=== PATIENT | male | born 1945 | race Caucasian/White ===

== ENCOUNTER 2018-12-24 13:48 | Emergency (ER) | payer OTHER ==
[~2018-12-24] VITALS: Ht 177.8 cm; Wt 90.7 kg
[2018-12-24 14:25] LABS: ABSOLUTE NEUTROPHILS 11.2 thou/uL (1.4-8.2); BASOPHILS 0.3 % (0.0-2.0); EOSINOPHILS 0.2 % (0.0-3.0); HEMATOCRIT 45.2 % (42.0-52.0); LYMPHOCYTES 10.9 % (24.0-44.0); MCH 31.2 pg (26.0-34.0); MCHC 33.1 g/dL (28.0-37.0); MCV 94.4 fL (80.0-100.0); MONOCYTES 6.1 % (1.0-8.0); PLATELET COUNT 260 thou/uL (150-400); POLYS 82.5 % (36.0-66.0); RBC 4.79 mil/uL (4.50-6.00); WBC 13.6 thou/uL (4.0-11.0)
[2018-12-24 14:30] LABS: ANION GAP 11 mmol/L (7-16); BUN 25 mg/dL (7-18); CALCIUM 9.3 mg/dL (8.5-10.1); CHLORIDE 101 mmol/L (98-107); CO2 24 mmol/L (21-32); GLUCOSE 255 mg/dL (74-106); POTASSIUM 4.7 mmol/L (3.5-5.1); SODIUM 136 mmol/L (136-145)
[2018-12-24 14:39] LABS: ALBUMIN 3.6 g/dL (3.4-5.0); SGOT 16 U/L (15-37); SGPT 29 U/L (30-65); TOTAL BILIRUBIN 0.4 mg/dL (<0.1-1.0); TROPONIN-I <0.06 ng/mL (<0.06)
[2018-12-24 15:44] LABS: URINE BILIRUBIN NEGATIVE (Negative); URINE BLOOD NEGATIVE (Negative); URINE CLARITY CLEAR; URINE GLUCOSE-RANDOM* NEGATIVE (Negative); URINE KETONES NEGATIVE (Negative); URINE LEUKOCYTES-REFLEX NEGATIVE (Negative); URINE NITRITE-REFLEX NEGATIVE (Negative); URINE PROTEIN (DIPSTICK) 1+ (Negative); URINE UROBILINOGEN 0.2 E.U./dl (0.2-1.0)
[2018-12-24 15:47] LABS: URINE COLOR YELLOW
[2018-12-24 15:50] LABS: BACTERIA-REFLEX 1-9 Few /HPF (None Seen); CASTS None Seen /LPF (None Seen); CRYSTALS None Seen /LPF (None Seen); SQUAMOUS None Seen /LPF (0-3); URINE RBC None Seen /HPF (0-2); URINE WBC-REFLEX 0-5 Rare /HPF (0-5)
[2018-12-24 17:28] VITALS: BP 152/87
--- NOTE | 2018-12-25 10:26 | EKG ---
[place] [address] [facility] [place] [address] ELECTROCARDIOGRAM REPORT Name: VIC NGO [facility] [id number] ������������������ Admission: 12/24/18 ������������������ Attend Phys: Discharge: 12/24/18 ������������������ Date of : 49 Report #: [id number] ����������������������������������������������������������������� [id number] THIS REPORT FOR: //name// [facility] ED Test Date: 2018-12-24 Test Time: 13:54:06 Pat Name: VIC NGO Department: Room: Gender: Testing Manager: : 1945 Requested By: Janice Russell Order Number: [id number] MD: Adriel Parmar Measurements Intervals [place] Rate: 93 P: 71 IA: 165 QRS: -3 QRSD: 116 T: -25 QT: 371 QTc: 462 Interpretive Statements Sinus arrhythmia Inferior infarct, age indeterminate Compared to ECG 09/12/2005 06:25:21 Intraventricular conduction delay now present Sinus tachycardia no longer present Electronically Signed On 12-25-2018 10:25:53 CDT by Adriel Parmar [email or web address] ��������������������������������������������� <ELECTRONICALLY SIGNED> ���������������������������������������� By: Adriel Parmar MD, [facility] ��������������������������������������������� 12/25/18 1025 1354 1354 Adriel Parmar MD, [facility] /EPI
== END 2018-12-24 17:28 | disposition home or self-care (01) ==
LOC: ER 13:48
PROVIDERS: Student in an Organized Health Care Education/Training Program
DX: R55 Syncope and collapse (principal); M06.9 Rheumatoid arthritis, unspecified; F17.210 Nicotine dependence, cigarettes, uncomplicated; Z88.0 Allergy status to penicillin; Z88.1 Allergy status to other antibiotic agents; Z88.8 Allergy status to other drugs, medicaments and biological substances; Z95.5 Presence of coronary angioplasty implant and graft

== ENCOUNTER 2020-06-07 19:06 | Inpatient (IN) | payer OTHER, MEDICARE ==
[~2020-06-07] VITALS: Ht 177.8 cm; Wt 63.0 kg
[2020-06-07 20:55] LABS: ABSOLUTE NEUTROPHILS 8.6 thou/uL (1.4-8.2); BASOPHILS 1.3 % (0.0-2.0); EOSINOPHILS 0.3 % (0.0-3.0); HEMATOCRIT 41.7 % (42.0-52.0); HEMOGLOBIN 13.9 gm/dL (14.0-18.0); LYMPHOCYTES 17.8 % (24.0-44.0); MCH 31.4 pg (26.0-34.0); MCHC 33.3 g/dL (28.0-37.0); MCV 94.2 fL (80.0-100.0); MONOCYTES 11.9 % (1.0-8.0); PLATELET COUNT 253 thou/uL (150-400); POLYS 68.7 % (36.0-66.0); RBC 4.42 mil/uL (4.50-6.00); RDW 14.6 % (10.5-14.5); WBC 12.6 thou/uL (4.0-11.0)
[2020-06-07 21:05] LABS: ANION GAP 11 mmol/L (7-16); BUN 13 mg/dL (7-18); CALCIUM 9.1 mg/dL (8.5-10.1); CHLORIDE 101 mmol/L (98-107); CO2 27 mmol/L (21-32); CREATININE 1.1 mg/dL (0.7-1.3); GLUCOSE 179 mg/dL (74-106); SODIUM 139 mmol/L (136-145)
[2020-06-07 21:06] LABS: URINE BILIRUBIN NEGATIVE (Negative); URINE BLOOD TRACE (Negative); URINE CLARITY CLEAR; URINE COLOR YELLOW; URINE GLUCOSE-RANDOM* NEGATIVE (Negative); URINE KETONES NEGATIVE (Negative); URINE LEUKOCYTES-REFLEX NEGATIVE (Negative); URINE NITRITE-REFLEX NEGATIVE (Negative); URINE PROTEIN (DIPSTICK) NEGATIVE (Negative); URINE UROBILINOGEN 0.2 E.U./dl (0.2-1.0)
[2020-06-07 21:07] LABS: POTASSIUM 4.2 mmol/L (3.5-5.1)
--- NOTE | 2020-06-07 21:10 | NUR ---
I PERFORMED ORTHOSTATIC BP,PULSE WHICH PATIENT TOLERATED WITHOUT DIZZINESS, STEADY WHILE STANDING. VOIDED FOR UA SPECIMEN. AFTER LYING BACK DOWN, PATIENT BECAME UNRESPONSIVE WITH FIXED STARE, NO CHANGE TO BREATHING. RETURNED TO CONSCIOUSNESS QUICKLY, ALERT, ORIENTED. REVIEWED FELLING MACHINE OPERATOR WHICH SHOWED ASYTOLE DURING EVENT AT 2054.SPOUSE IN ROOM REPORTED SIMILAR BRIEF PERIODS OF FAINTING SINCE HE HAS BEEN IN ER. PRINTED COPIES OF FELLING MACHINE OPERATOR SHOWING TWO EPISODES OF ASYSTOLE AT [address] WOODS AND CHARGE NURSE KATIE NOTIFIED OF ABOVE.
[2020-06-07 21:16] LABS: ALBUMIN 3.1 g/dL (3.4-5.0); MAGNESIUM 1.9 mg/dL (1.8-2.4); SGOT 19 U/L (15-37); SGPT 20 U/L (30-65); TOTAL BILIRUBIN 0.5 mg/dL (0.2-1.0); TOTAL PROTEIN 6.5 g/dL (6.4-8.2); TROPONIN-I <0.06 ng/mL (<0.06)
--- NOTE | 2020-06-07 21:30 | NUR ---
BIOLOGY LABORATORY ASSISTANT HAS BEEN CALLED. PREPARED FOR PACEMAKER INSERTION
[2020-06-07 22:16] VITALS: BP 146/78
[2020-06-08] VITALS (10 sets, daily range): BP systolic 131–148; BP diastolic 64–83
[2020-06-08] MEDS ORDERED: PREDNISONE 5 MG5 M1 PO (00:43)
[2020-06-08] MEDS ORDERED: METHOTREXATE 22.5 M1 PO (00:44)
[2020-06-08] MEDS ORDERED: LEVOFLOXACIN750 MG PO (00:47)
[2020-06-08] MEDS ORDERED: HYDRALAZINE 5050 MG PO ×2 (00:50)
[2020-06-08] MEDS ORDERED: NORVASC 2.5 MG2.5 M1 PO (00:51)
--- NOTE | 2020-06-08 02:04 | NUR ---
PT ADMITTED FROM THE EP.PT PRESENTED TO HOSPITAL WITH COMPLAIN OF MUTIPLE SYNCOPY EPISODES.PT WAS FOUND TO BE IN COMPLETE HEART YOLIS AND WAS TAKEN TO EP LAB FOR PACEMAKER PLACEMENT.HE ARRIVED TO UNIT ACCOMPANIED BY HER AND DAUGHTER,VIA BED.PT DENIES ANY DISTRESS.VSS STABLE.V-PACED ON MONITOR.PT TOLERATING PO INTAKE.LEFT CHEST PACEMAKER INCISION,INTACT,NO ACTIVE BLEEDING,NO BRUISING OR EDEMA.IMMOBILIZER IN PLACE.ADMISSION ASSESSMENT COMPLETED DOCUMENTED.NO CONCERNS VOICED.WILL CONT TO MONITOR PER POC.POSSIBLE DIACHARGE TODAY.
--- NOTE | 2020-06-08 03:00 | NUR ---
EKGS X 2, RHYTHM STRIPS X 3 HAND CARRIED TO CCU AND GIVEN TO HIS NURSE BY MYSELF.
[2020-06-08 03:10] LABS: HEMATOCRIT 42.3 % (42.0-52.0); MCH 31.4 pg (26.0-34.0); MCHC 33.1 g/dL (28.0-37.0); MCV 94.7 fL (80.0-100.0); RBC 4.46 mil/uL (4.50-6.00); RDW 14.8 % (10.5-14.5)
[2020-06-08 03:27] LABS: CALCIUM 8.6 mg/dL (8.5-10.1); CREATININE 1.1 mg/dL (0.7-1.3)
--- NOTE | 2020-06-08 09:38 | EKG ---
[facility]na [address] [employer] [place] [place] [address] ELECTROCARDIOGRAM REPORT Name: VIC NGO Room #: 208-P ADM IN M.R.#: [id number] Admission: 06/07/20 Attend Phys: Constantino Tinsley Discharge: Date of : 49 Report #: [id number] THIS REPORT FOR: cc: FAM - Family physician unknown FAM - Family physician unknown Vicente Duvall MD ~ THIS REPORT FOR: //name// [facility] ED Test Date: 2020-06-07 Test Time: 19:17:48 Pat Name: VIC NGO Department: Room: [facility] Gender: M Cant Hooker: : 1945 Requested By: Syed Mae Order Number: [id number] MD: Vicente Duvall Measurements Intervals [place] Rate: 92 P: 112 VA: 227 QRS: 166 QRSD: 116 T: 187 QT: 358 QTc: 443 Interpretive Statements Right and left arm electrode reversal, interpretation assumes no reversal Sinus rhythm Prolonged VA interval Probable left atrial enlargement Nonspecific intraventricular conduction delay Nonspecific T abnormalities, lateral leads Compared to ECG 12/24/2018 13:54:06 Electronically Signed On 06-08-2020 9:38:31 CDT by Vicente Duvall [email or web address] <ELECTRONICALLY SIGNED> By: Vicente Duvall MD 06/08/20937 16 16 Vicente Duvall MD /EPI
--- NOTE | 2020-06-08 09:40 | EKG ---
[facility] [place] [address] ELECTROCARDIOGRAM REPORT Name: VIC NGO Room #: 208-P ADM IN M.R.#: [id number] Admission: 06/07/20 Attend Phys: Constantino Tinsley Discharge: Date of : 49 Report #: [id number] THIS REPORT FOR: cc: FAM - Family physician unknown FAM - Family physician unknown Vicente Duvall MD ~ THIS REPORT FOR: //name// [facility] ED Test Date: 2020-06-07 Test Time: 21:54:24 Pat Name: VIC NGO Department: Room: 208 Gender: M Billet Bed Operator: : 1945 Requested By: Syed Mae Order Number: [id number] MD: Vicente Duvall Measurements Intervals [place] Rate: 86 P: 47 IL: 189 QRS: 11 QRSD: 116 T: -19 QT: 373 QTc: 446 Interpretive Statements Sinus rhythm Atrial premature complex Nonspecific intraventricular conduction delay Inferior infarct, age indeterminate Compared to ECG 06/07/2020 19:17:48 Electronically Signed On 06-08-2020 9:40:02 CDT by Vicente Duvall [email or web address] <ELECTRONICALLY SIGNED> By: Vicente Duvall MD 06/08/20 0940 53 53 Vicente Duvall MD /EPI
--- NOTE | 2020-06-08 18:37 | NUR ---
ASSUMED CARE OF PT AT SHIFT CHANGE. ASSESSMENTS CHARTED. MEDS GIVEN PER OCT. PT A&OX4, NO C/O PAIN OR DISTRESS. INCISION ON L CHEST IS CDI, NO REDNESS OR HEMATOMA. PLAN FOR DISCHARGE IN THE MORNING. WILL CONTINUE TO MONITOR AND FOLLOW POC.
[2020-06-09 03:30] VITALS: BP 147/79
--- NOTE | 2020-06-09 03:54 | NUR ---
ASSESSMENT DOCUMENTED.PT BEEN RESTING IN NO ACUTE DISTRESS.A/OX4.VSS.S/P DUAL CHAMBER PACEMAKER PLACED.LEFT INCISION DRY AND INTACT.IMMOBILIZER ON WHILE SLEEPING.PT DENIES SYNCOPY SPELLS OR ANY DISTRESS AT THIS TIME.POC IS TO DSICHARGE TO HOME TODAY.WILL CONT TO MONITOR PER POC.
[2020-06-09 08:48] VITALS: BP 126/59
[2020-06-09] MEDS ORDERED: LIPITOR40 MG PO (09:01)
[2020-06-09 11:00] VITALS: BP 126/59
--- NOTE | 2020-06-09 11:20 | NUR ---
ASSUMED CARE PT SHIFT CHANGE. ASSESSMENT CHARTED.MEDS GIVEN PER OCT. PT ALERT AND ORIENTED.VSS. DENIES PAIN. INCISION CDI NO LEAKAGE OR HEMATOMA. DC ORDERS ACKNOWLEDGED. DC PAPERWORK DISCUSSED WITH PT COMMUNICATES UNDERSTANDING. IV REMOVED. TELE REMOVED. PT LEFT WITH ALL BELONGINGS ACCOMPANIED BY SPOUSE
[2020-06-11 00:06] LABS: GLYCOHEMOGLOBIN (HGB A1C) 7.9 % (4.8-5.6)
== END 2020-06-09 11:23 | disposition home or self-care (01) | DRG 243 ==
LOC: ER 19:06 → 2N 22:16 → EROBS 22:36 → 2N 22:36
PROVIDERS: Emergency Medicine; Nurse Practitioner Family; ADMIT Hospitalist; ATTEND Hospitalist
PROC: 0JH606Z Insertion of Pacemaker, Dual Chamber into Chest Subcutaneous Tissue and Fascia, Open Approach (ICD-10-PCS; principal; 2020-06-07)
PROC: 02H63JZ Insertion of Pacemaker Lead into Right Atrium, Percutaneous Approach (ICD-10-PCS; principal; 2020-06-07)
PROC: 02HK3JZ Insertion of Pacemaker Lead into Right Ventricle, Percutaneous Approach (ICD-10-PCS; principal; 2020-06-07)
DX: I44.2 Atrioventricular block, complete (principal); E44.0 Moderate protein-calorie malnutrition; R00.1 Bradycardia, unspecified; I25.10 Atherosclerotic heart disease of native coronary artery without angina pectoris; M06.9 Rheumatoid arthritis, unspecified; I10 Essential (primary) hypertension; E78.5 Hyperlipidemia, unspecified; J44.9 Chronic obstructive pulmonary disease, unspecified; Z87.891 Personal history of nicotine dependence; Z95.5 Presence of coronary angioplasty implant and graft; Z79.899 Other long term (current) drug therapy; Z88.1 Allergy status to other antibiotic agents; Z88.0 Allergy status to penicillin; Z23 Encounter for immunization; Z95.1 Presence of aortocoronary bypass graft
CPT/HCPCS: 10081; 62110; 62900

== ENCOUNTER → 2020-06-13 | Outpatient (CLI) | payer OTHER, MEDICARE ==
[~2020-06-13] MED LIST: HYDRALAZINE 5050 MG PO; LEVOFLOXACIN750 MG PO; LIPITOR40 MG PO; METHOTREXATE 22.5 M1 PO; NORVASC 2.5 MG2.5 M1 PO; PREDNISONE 5 MG5 M1 PO
== END ==
LOC: SJCVC 14:50
PROVIDERS: ATTEND Internal Medicine Cardiovascular Disease
DX: Z45.018 Encounter for adjustment and management of other part of cardiac pacemaker (principal); I44.2 Atrioventricular block, complete; R55 Syncope and collapse; I25.10 Atherosclerotic heart disease of native coronary artery without angina pectoris; E78.5 Hyperlipidemia, unspecified; F17.200 Nicotine dependence, unspecified, uncomplicated; Z79.899 Other long term (current) drug therapy

== ENCOUNTER → 2020-09-12 | Outpatient (CLI) | payer OTHER, MEDICARE | LOC: SJCVC 14:52 | PROVIDERS: ATTEND Internal Medicine Cardiovascular Disease | DX: R94.31 Abnormal electrocardiogram [ECG] [EKG] (principal); I44.2 Atrioventricular block, complete; R55 Syncope and collapse; I25.10 Atherosclerotic heart disease of native coronary artery without angina pectoris; E78.5 Hyperlipidemia, unspecified; F17.200 Nicotine dependence, unspecified, uncomplicated; Z95.1 Presence of aortocoronary bypass graft; Z88.0 Allergy status to penicillin; Z79.82 Long term (current) use of aspirin; Z79.899 Other long term (current) drug therapy ==